=== PATIENT | female | born 1975 | race African-American/Black ===

== ENCOUNTER 2016-07-24 12:51 | Inpatient (IN) | payer OTHER ==
[~2016-07-24] VITALS: Ht 180.3 cm; Wt 137.0 kg
--- NOTE | ~2016-07-24 | 2DMMODE ---
[facility] [place] [address] 2 D/M-MODE ECHOCARDIOGRAM Name: DEWITTSHAYAN Room #: 209-P ADM IN M.R.#: [id number] Admission: 07/24/16 Attend Phys: Elias Morrow Discharge: Date of : 77 Date of Service: 07/26/16 1002 Report #: [id number] THIS REPORT FOR: //name// APPROVED REPORT Study performed: 07/26/2016 06:40:55 EXAM: Comprehensive 2D, Doppler, and color-flow Echocardiogram Patient Location: Bedside Room #: 209 Blood Pressure: 123/67 mmHg HR: 60 bpm Rhythm: NSR Other Information Study Quality: Adequate Indications Elevated Troponin S/P heart cath 07/25/16, CAD. Hx: Tobacco abuse, morbid obesity 2D Dimensions RVDd: 36.20 mm LVEF(%): 64.84 (>50%) IVSd: 11.47 (7-11mm) LVOT Diam: 21.75 (18-24mm) LVDd: 50.40 mm PWd: 10.76 (7-11mm) Ascending Ao: 31.79 (22-36mm) LVDs: 32.44 (25-40mm) Aortic Root: 30.58 mm Ch's LVEF: 64.84 % Volumes Left Atrial Volume (Systole) Single Plane 4CH: 63.02 mL Single Plane 2CH: 69.47 mL LA ESV Index: 29.00 mL/m2 Aortic Valve AoV Peak Wander.: 1.67 m/s AO Peak Gr.: 11.14 mmHg LVOT Max P.79 mmHg LVOT Max V: 0.97 m/s Mitral Valve E/A Ratio: 1.9 [facility] [address] [address] 2 D/M-MODE ECHOCARDIOGRAM Name: SHAYAN DEWITT Room #: 209-P [facility] IN ..#: [id number] Admission: 07/24/16 Attend Phys: Elias Morrow Discharge: Date of : 77 Date of Service: 07/26/16 1002 Report #: [id number] MV Decel. Time: 252.67 ms MV E Max Wander.: 0.96 m/s MV A Wander.: 0.51 m/s MV PHT: 73.27 ms Pulmonary Valve PV Peak Wander.: 0.94 m/s PV Peak Gr.: 3.55 mmHg Pulmonary Vein P Vein S: 73.0 m/s P Vein D: 66.9 m/s P Vein A Dur.: 23.8 m/s Tricuspid Valve TR Peak Wander.: 2.45 m/s RAP Estimate: 5.00 mmHg TR Peak Gr.: 23.93 mmHg RVSP: 29.00 mmHg Left Ventricle The left ventricle is normal size. There is normal LV segmental wall motion. There is normal left ventricular wall thickness. The left ventricular systolic function is normal. LVEF is 55-60%. The left ventricular diastolic function is normal. Right Ventricle The right ventricle is normal size. The right ventricular systolic function is normal. Atria The left atrium size is normal. The right atrium size is normal. Aortic Valve The aortic valve is normal in structure. No aortic regurgitation is present. There is no aortic valvular stenosis. Mitral Valve The mitral valve is normal in structure. Trace mitral regurgitation. Tricuspid Valve The tricuspid valve is normal in structure. There is mild tricuspid regurgitation. The right atrial pressure is estimated at 5 mmHg. Estimated PAP is 29mmHg. Pulmonic Valve The pulmonary valve is normal in structure. Trace pulmonic regurgitation. [address] [address] 2 D/M-MODE ECHOCARDIOGRAM Name: RENATESHAYAN Room #: 209-P [facility] IN [facility]#: [id number] Admission: 07/24/16 Attend Phys: Elias Morrow Discharge: Date of : 77 Date of Service: 07/26/16 1002 Report #: [id number] Great Vessels The aortic root is normal in size. The ascending aorta is normal in size. IVC is normal in size and collapses with >50% inspiration Pericardium There is no pericardial effusion. <Conclusion> The left ventricle is normal size. LVEF is 55-60%. The aortic valve is normal in structure. The mitral valve is normal in structure. Trace mitral regurgitation. The tricuspid valve is normal in structure. There is mild tricuspid regurgitation. The right atrial pressure is estimated at 5 mmHg. Estimated PAP is 29mmHg. Trace pulmonic regurgitation. <ELECTRONICALLY SIGNED> By: Suresh Aguillon MD 07/26/16 1002 1002 1002 Suresh Aguillon MD /INF
--- NOTE | ~2016-07-24 | CATHLAB ---
[facility] [address] [place] [address] INVASIVE PROCEDURE REPORT Name: SHAYAN DEWITT Room #: 209-P [facility] IN .R.#: [id number] Admission: 07/24/16 Attend Phys: Elias Morrow Discharge: Date of : 77 Date of Service: 07/25/16 1146 Report #: [id number] THIS REPORT FOR: //name// CC: Divine Castillo DATE OF SERVICE: 07/25/2016 INDICATIONS: Unstable angina, positive troponins. Full risks, benefits and alternatives of cardiac catheterization were explained to the patient. All questions were answered. Informed consent was obtained. The right groin area was prepped and draped in a sterile manner. Lidocaine was given subcutaneously. A 4-Prydeinig sheath was inserted into the right femoral artery via modified Seldinger technique. CORONARY ANATOMY: 1. The left main artery is a moderate to large sized caliber vessel, with no flow-limiting lesions. 2. The LAD is a moderate sized caliber vessel, traveling down the anterior wall and wrapping around the apex. Within the proximal segment of the LAD, there is a discrete, mild to moderate disease, approximately 40%. Medical therapy is recommended. 3. The left circumflex artery supplies 3 small obtuse marginal arteries. There were no flow-limiting lesions in the left circumflex artery. 4. The RCA is a dominant vessel with mild disease proximally, less than 20%. There were no limiting lesions within the remaining segments of the RCA or its branches. A left ventriculogram was performed revealing LV systolic function at the lower limits of normal, ejection fraction of 50-55%. There may be subtle hypokinesis of the apical region. The LVEDP is approximately 22 mmHg. There is no gradient across the outflow tract. IMPRESSION: 1. Mild to moderate disease in the proximal left anterior descending. Medical therapy is recommended. 2. Right dominant system. 3. Left ventricular systolic function at the lower limits of normal, possible subtle hypokinesis of the apical segment. 4. Medical therapy is recommended. <ELECTRONICALLY SIGNED> By: Shaheen Nicholas MD 07/26/16 0901 1146 0554 Shaheen Nicholas MD /nt
--- NOTE | ~2016-07-24 | H ---
[facility] [place] [address] HISTORY AND PHYSICAL Name: SHAYAN DEWITT Room #: 170-11 ADM IN M.R.#: [id number] Admission: 07/24/16 Attend Phys: Lenny Castillo MD Discharge: Date of : 77 Report #: [id number] THIS REPORT FOR: //name// CC: Divine Castillo DATE OF SERVICE: 07/24/2016 CHIEF COMPLAINT: Epigastric and lower chest pain. HISTORY OF PRESENT ILLNESS: The patient is a 40-year-old female with history of gastroesophageal reflux disease who presented to the Emergency Room complaining of epigastric and lower sternal pain. Symptoms started yesterday at around 10:00 p.m. It has been associated with nausea and vomiting. She had occasional dizziness, but no shortness of breath. The patient was initially worked up for possible gallbladder disease. Her AST was slightly elevated at 65. Her troponin is elevated at 1.27. EKG did show normal sinus rhythm without any significant ST segment or T-wave changes. The patient has no history of hypertension, diabetes or coronary artery disease. No history of any fever or chills. PAST MEDICAL HISTORY: Significant for hysterectomy. No history of any peptic ulcer disease, bleeding disorder. She has history of gastroesophageal reflux disease. No history of coronary artery disease. FAMILY HISTORY: Significant for hypertension. No history of diabetes. Father had coronary artery disease in his 60s. ALLERGIES: The patient is allergic to DEMEROL, please look at the nursing documentation for the reaction. HOME MEDICATION: Includes ranitidine. SOCIAL HISTORY: Smokes half a pack a day for the last 18 years. No history of alcohol abuse or illicit drug abuse. REVIEW OF SYSTEMS: CONSTITUTIONAL: No recent weight loss or weight gain. No fever or chills. EYES: No change in vision. THROAT: Denies any sore throat. CARDIOVASCULAR: As above. RESPIRATORY: No cough, expectoration. GASTROINTESTINAL: As above. GENITOURINARY: No dysuria, hematuria. NEUROLOGIC: No focal numbness or weakness of the extremities. [facility] [address] [place] [address] HISTORY AND PHYSICAL Name: SHAYAN DEWITT TRUDY Room #: 170-11 [facility] IN [facility]#: [id number] Admission: 07/24/16 Attend Phys: Lenny Castillo MD Discharge: Date of : 77 Report #: [id number] PSYCHIATRIC: No anxiety or depression. The 12-point review of system is negative other than the positive and the negative dictated in the history of present illness and the review of system. PHYSICAL EXAMINATION: VITAL SIGNS: Reveal blood pressure 141/74, heart rate of 79 per minute, afebrile. GENERAL: The patient is awake and alert, not in acute respiratory distress. EYES: Pupils equal, reactive to light, nonicteric, conjunctivae. Throat appears normal. NECK: Supple, no JVD, no bruit, no lymphadenopathy. CARDIOVASCULAR SYSTEM: S1, S2, negative S3, no murmur. CHEST: Bilateral air entry present. Clear on auscultation. ABDOMEN: Soft, bowel sounds present, no mass organomegaly. There is very mild tenderness in the epigastric area. No rebound tenderness. PERIPHERY: No pedal edema. No calf tenderness. Dorsalis pedis 1+. NEUROLOGICAL: No gross motor or sensory deficit. LABORATORY DATA: Reviewed. Her troponin is elevated at 1.27. AST and ALT are 16 and 37 respectively. Bilirubin is 0.8. BUN and creatinine are within normal limit. White count is normal at 9.4, normal hemoglobin and hematocrit. UA is essentially negative. PT/INR within normal limit. ASSESSMENT AND PLAN: 1. Chest pain, possible non-ST segment elevation myocardial infarction. The patient does have elevated troponin at 1.27. EKG showed no significant changes. The patient will be treated with aspirin and Lovenox and low dose beta letitia. I will order the echocardiogram. Cardiology has been consulted. We will keep her n.p.o. after midnight. 2. Gastroesophageal reflux disease. The patient will be placed on PPI. Rule out gallbladder disease. With a slightly elevated AST, I will go ahead and order an ultrasound of the gallbladder. We will also check on a total CPK level and a chest x-ray. Treatment plan has been explained to the patient in detail. We will check her lipids in the morning. <ELECTRONICALLY SIGNED> By: Lenny Castillo MD 07/24/16 1607 1502 1529 Lenny Castillo MD /nt
--- NOTE | ~2016-07-24 | EKG ---
[address] [place] [address] ELECTROCARDIOGRAM REPORT Name: DEWITTSHAYAN Room #: 209- ADM IN M.R.#: [id number] Admission: 07/24/16 Attend Phys: Lenny Castillo MD Discharge: Date of : 77 Report #: [id number] THIS REPORT FOR: //name// [facility] Test Date: 2016-07-25 Test Time: 06:57:58 Pat Name: SHAYAN DEWITT Department: Room: 209 P Gender: F [employer] Supervisor: joon : 1975 Requested By: Grace Alegria Order Number: [id number] MD: Jesse Neal Measurements Intervals [place] Rate: 75 P: 43 NM: 188 QRS: 21 QRSD: 85 T: 35 QT: 399 QTc: 446 Interpretive Statements Sinus rhythm Anterior T-wave abnormality No previous ECG available for comparison Electronically Signed On 07-25-2016 9:05:48 CDT by Jesse Neal [email or web address] <ELECTRONICALLY SIGNED> By: Jesse Neal MD, [facility] 07/25/16 0905 0657 06 Jesse Neal MD, FACC /EPI
--- NOTE | ~2016-07-24 | EKG ---
[place] [address] [address] [place] [address] ELECTROCARDIOGRAM REPORT Name: RENATESHAYAN Room #: 209-P ADM IN M.R.#: [id number] Admission: 07/24/16 Attend Phys: Lenny Castillo MD Discharge: Date of : 77 Report #: [id number] THIS REPORT FOR: //name// [facility] ED Test Date: 2016-07-24 Test Time: 13:42:15 Pat Name: SHAYAN DEWITT Department: Room: 209 Gender: F [employer] Supervisor: MZOOLouise : 1975 Requested By: Regi Pate Order Number: [id number] MD: Jesse Neal Measurements Intervals [place] Rate: 78 P: 48 CT: 176 QRS: 24 QRSD: 89 T: 43 QT: 394 QTc: 449 Interpretive Statements Sinus rhythm No significant abnormality No previous ECG available for comparison Electronically Signed On 07-25-2016 8:57:56 CDT by Jesse Neal [email or web address] <ELECTRONICALLY SIGNED> By: Jesse Neal MD, [facility] 07/25/16 0857 1342 1342 Jesse Neal MD, FACC /EPI
[2016-07-24 12:51] VITALS: BP 149/82
[~2016-07-24 12:51] MED LIST: BACTRIM DS TAB1 EACH PO; KEFLEX500 MG PO; LEXAPRO 10 MG T10 M1; NORCO 5-325 TA1 EACH PO; XANAX 0.5 MG0.5 MG
[2016-07-24 13:45] LABS: ABSOLUTE NEUTROPHILS 6.2 thou/uL (1.4-8.2); BASOPHILS 0.5 % (0.0-2.0); EOSINOPHILS 0.9 % (0.0-3.0); HEMATOCRIT 40.3 % (37.0-47.0); HEMOGLOBIN 14.1 gm/dL (12.0-15.0); LYMPHOCYTES 25.7 % (24.0-44.0); MCH 34.5 pg (26.0-34.0); MCHC 34.9 g/dL (28.0-37.0); MCV 98.9 fL (80.0-100.0); MONOCYTES 6.7 % (1.0-8.0); PLATELET COUNT 306 thou/uL (150-400); POLYS 66.2 % (36.0-66.0); RBC 4.08 mil/uL (4.20-5.00); RDW 12.4 % (10.5-14.5); WBC 9.4 thou/uL (4.0-11.0)
[2016-07-24 13:46] LABS: MANUAL DIFF NO
[2016-07-24 13:57] LABS: CALCIUM 8.9 mg/dL (8.5-10.1); CREATININE 0.7 mg/dL (0.6-1.0); POTASSIUM 4.3 mmol/L (3.5-5.1)
[2016-07-24 14:04] LABS: ALBUMIN 3.6 g/dL (3.4-5.0); TOTAL BILIRUBIN 0.8 mg/dL (<0.1-1.0); TOTAL PROTEIN 8.4 g/dL (6.4-8.2)
[2016-07-24 14:07] LABS: TROPONIN-I 1.27 ng/mL (<0.04-0.07)
[2016-07-24 14:46] LABS: URINE BILIRUBIN NEGATIVE (Negative); URINE BLOOD NEGATIVE (Negative); URINE COLOR YELLOW; URINE GLUCOSE-RANDOM* NEGATIVE (Negative); URINE KETONES NEGATIVE (Negative); URINE NITRITE NEGATIVE (Negative); URINE PROTEIN (DIPSTICK) NEGATIVE (Negative); URINE SPECIFIC GRAVITY 1.015 (1.003-1.035); URINE UROBILINOGEN 0.2 E.U./dl (0.2-1.0)
[2016-07-24 14:50] LABS: INR 1.1; PROTIME 11.1 Seconds (9.3-11.4)
[2016-07-24 17:15] VITALS: BP 139/79
[2016-07-24 20:06] VITALS: BP 135/81
[2016-07-25] VITALS (11 sets, daily range): BP systolic 114–141; BP diastolic 70–83
[2016-07-25 07:31] LABS: ABSOLUTE NEUTROPHILS 4.5 thou/uL (1.4-8.2); BASOPHILS 0.2 % (0.0-2.0); EOSINOPHILS 1.5 % (0.0-3.0); HEMATOCRIT 37.9 % (37.0-47.0); HEMOGLOBIN 13.2 gm/dL (12.0-15.0); LYMPHOCYTES 35.6 % (24.0-44.0); MCH 34.2 pg (26.0-34.0); MCHC 34.8 g/dL (28.0-37.0); MCV 98.3 fL (80.0-100.0); MONOCYTES 7.5 % (1.0-8.0); PLATELET COUNT 280 thou/uL (150-400); POLYS 55.2 % (36.0-66.0); RBC 3.85 mil/uL (4.20-5.00); RDW 12.5 % (10.5-14.5); WBC 8.2 thou/uL (4.0-11.0)
[2016-07-25 07:34] LABS: MANUAL DIFF NO
[2016-07-25 07:57] LABS: ALBUMIN 3.2 g/dL (3.4-5.0); ALKALINE PHOSPHATASE 56 U/L (46-116); ANION GAP 10 mmol/L (7-16); BUN 6 mg/dL (7-18); CALCIUM 8.5 mg/dL (8.5-10.1); CHLORIDE 104 mmol/L (98-107); CHOLESTEROL 191 mg/dL (<200); CO2 22 mmol/L (21-32); CREATININE 0.6 mg/dL (0.6-1.0); GLUCOSE 112 mg/dL (74-106); HDL CHOLESTEROL 34 mg/dL (>40); LDL CHOLESTEROL 135 mg/dL (<100); MAGNESIUM 1.9 mg/dL (1.8-2.4); POTASSIUM 4.2 mmol/L (3.5-5.1); SGOT 55 U/L (15-37); SGPT 34 U/L (30-65); SODIUM 136 mmol/L (136-145); TC:HDL 5.6 Ratio (Not establshd); TOTAL BILIRUBIN 0.8 mg/dL (<0.1-1.0); TOTAL PROTEIN 7.5 g/dL (6.4-8.2); TRIGLYCERIDE 111 mg/dL (<150); VLDL 22 mg/dL (<40)
[2016-07-25 08:00] LABS: TROPONIN-I 2.55 ng/mL (<0.04-0.07)
[2016-07-26 00:23] VITALS: BP 109/62
[2016-07-26 03:15] LABS: HEMATOCRIT 37.4 % (37.0-47.0); HEMOGLOBIN 12.7 gm/dL (12.0-15.0); RBC 3.74 mil/uL (4.20-5.00); RDW 12.5 % (10.5-14.5); WBC 8.3 thou/uL (4.0-11.0)
[2016-07-26 03:24] LABS: CALCIUM 8.6 mg/dL (8.5-10.1); CREATININE 0.8 mg/dL (0.6-1.0); MAGNESIUM 1.8 mg/dL (1.8-2.4); POTASSIUM 4.1 mmol/L (3.5-5.1)
[2016-07-26 03:47] VITALS: BP 123/67
[2016-07-26 07:39] VITALS: BP 138/77
[2016-07-26] MEDS ORDERED: CARVEDILOL3.125 MG PO (08:36)
[2016-07-26] MEDS ORDERED: ASPIRIN EC325 M1 PO (08:36)
[2016-07-26] MEDS ORDERED: ATORVASTATIN CA40 MG PO (08:36)
[2016-07-26 10:41] VITALS: BP 143/75
[2016-07-26 11:28] VITALS: BP 143/75
[2016-07-26 11:59] VITALS: BP 143/75
== END 2016-07-26 12:31 | disposition home or self-care (01) | DRG 282 ==
LOC: ER 12:51 → 2N 14:34 → EROBS 14:34 → 2N 16:47
PROVIDERS: Internal Medicine; Internal Medicine Cardiovascular Disease; Nurse Practitioner Family
PROC: 4A023N7 Measurement of Cardiac Sampling and Pressure, Left Heart, Percutaneous Approach (ICD-10-PCS; principal; 2016-07-25)
PROC: B2111ZZ Fluoroscopy of Multiple Coronary Arteries using Low Osmolar Contrast (ICD-10-PCS; principal; 2016-07-25)
PROC: B2151ZZ Fluoroscopy of Left Heart using Low Osmolar Contrast (ICD-10-PCS; principal; 2016-07-25)
DX: I21.4 Non-ST elevation (NSTEMI) myocardial infarction (principal); F17.210 Nicotine dependence, cigarettes, uncomplicated; K21.9 Gastro-esophageal reflux disease without esophagitis; E78.5 Hyperlipidemia, unspecified; J45.909 Unspecified asthma, uncomplicated; R79.89 Other specified abnormal findings of blood chemistry; R10.13 Epigastric pain; Z88.6 Allergy status to analgesic agent; Z82.49 Family history of ischemic heart disease and other diseases of the circulatory system; Z90.710 Acquired absence of both cervix and uterus; Z79.899 Other long term (current) drug therapy; Z71.6 Tobacco abuse counseling
CPT/HCPCS: 10081; 10194

== ENCOUNTER 2016-08-16 18:08 | Emergency (ER) | payer OTHER ==
[~2016-08-16] VITALS: Ht 180.3 cm; Wt 139.7 kg
--- NOTE | ~2016-08-16 | EKG ---
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
[~2016-08-16 18:08] MED LIST changes: +ASPIRIN EC325 M1 PO; +ATORVASTATIN CA40 MG PO; +CARVEDILOL3.125 MG PO
[2016-08-16 18:31] LABS: ABSOLUTE NEUTROPHILS 4.2 thou/uL (1.4-8.2); BASOPHILS 0.3 % (0.0-2.0); EOSINOPHILS 1.6 % (0.0-3.0); HEMATOCRIT 38.5 % (37.0-47.0); HEMOGLOBIN 13.3 gm/dL (12.0-15.0); LYMPHOCYTES 36.8 % (24.0-44.0); MANUAL DIFF NO; MCH 34.2 pg (26.0-34.0); MCHC 34.5 g/dL (28.0-37.0); MCV 99.2 fL (80.0-100.0); MONOCYTES 8.6 % (1.0-8.0); PLATELET COUNT 316 thou/uL (150-400); POLYS 52.7 % (36.0-66.0); RBC 3.89 mil/uL (4.20-5.00); RDW 12.6 % (10.5-14.5)
[2016-08-16 18:39] LABS: ANION GAP 9 mmol/L (7-16); BUN 10 mg/dL (7-18); CALCIUM 9.2 mg/dL (8.5-10.1); CHLORIDE 103 mmol/L (98-107); CO2 23 mmol/L (21-32); CREATININE 0.8 mg/dL (0.6-1.0); GLUCOSE 101 mg/dL (74-106); POTASSIUM 4.7 mmol/L (3.5-5.1); SODIUM 135 mmol/L (136-145)
[2016-08-16 18:49] LABS: NT-PRO BRAIN NAT PEPTIDE 27 pg/mL (<300); TROPONIN-I < 0.04 ng/mL (<0.04-0.07)
== END 2016-08-16 21:25 | disposition home or self-care (01) ==
LOC: ER 18:08
PROVIDERS: Physician Assistant
DX: R07.89 Other chest pain (principal); J45.909 Unspecified asthma, uncomplicated; K21.9 Gastro-esophageal reflux disease without esophagitis; Z90.710 Acquired absence of both cervix and uterus; I25.2 Old myocardial infarction; Z98.890 Other specified postprocedural states; Z88.8 Allergy status to other drugs, medicaments and biological substances; F17.210 Nicotine dependence, cigarettes, uncomplicated; F10.99 Alcohol use, unspecified with unspecified alcohol-induced disorder

== ENCOUNTER → 2017-01-05 | Outpatient (CLI) | payer OTHER ==
--- NOTE | ~2017-01-05 | EKG ---
[address] [address] ELECTROCARDIOGRAM REPORT Name: SHAYAN DEWITT [id number] Admission: 01/05/17 Attend Phys: Malcolm Mays MD, F Discharge: Date of : 77 Report #: [id number] THIS REPORT FOR: //name// [facility] Test Date: 2017-01-05 Test Time: 11:33:56 Pat Name: SHAYAN DEWITT Department: Room: Gender: F Front End Technician: Dipti HUMPHREY : 1975 Requested By: Malcolm Mays Order Number: [id number] MD: Moreno Ray Measurements Intervals [place] Rate: 85 P: 42 MT: 176 QRS: 31 QRSD: 79 T: 15 QT: 370 QTc: 440 Interpretive Statements Sinus rhythm Compared to ECG 08/16/2016 18:15:22 No significant changes Electronically Signed On 01-05-2017 21:03:34 CDT by Moreno Ray [email or web address] <ELECTRONICALLY SIGNED> By: Moreno Ray MD 01/05/17 2103 D: [id number] 32 Moreno Ray MD /NEYDA
[2017-01-05 10:45] LABS: ABSOLUTE NEUTROPHILS 5.2 thou/uL (1.4-8.2); BASOPHILS 0.2 % (0.0-2.0); EOSINOPHILS 1.6 % (0.0-3.0); HEMATOCRIT 39.2 % (37.0-47.0); HEMOGLOBIN 13.7 gm/dL (12.0-15.0); LYMPHOCYTES 27.1 % (24.0-44.0); MCH 34.1 pg (26.0-34.0); MCHC 34.8 g/dL (28.0-37.0); MCV 97.9 fL (80.0-100.0); MONOCYTES 6.7 % (1.0-8.0); PLATELET COUNT 298 thou/uL (150-400); POLYS 64.4 % (36.0-66.0); RBC 4.01 mil/uL (4.20-5.00); RDW 12.4 % (10.5-14.5); WBC 8.1 thou/uL (4.0-11.0)
[2017-01-05 10:47] LABS: MANUAL DIFF NO
[2017-01-05 11:03] LABS: ALBUMIN 3.5 g/dL (3.4-5.0); CALCIUM 9.3 mg/dL (8.5-10.1); CREATININE 0.8 mg/dL (0.6-1.0); POTASSIUM 4.5 mmol/L (3.5-5.1); TOTAL BILIRUBIN 0.7 mg/dL (<0.1-1.0); TOTAL PROTEIN 7.7 g/dL (6.4-8.2)
[2017-01-05 11:41] LABS: FOLIC ACID 11.5 ng/mL (8.6-58.9)
== END ==
LOC: RAD 10:03
PROVIDERS: Surgery
DX: K21.9 Gastro-esophageal reflux disease without esophagitis (principal); I10 Essential (primary) hypertension; E66.01 Morbid (severe) obesity due to excess calories; R73.03 Prediabetes; Z68.41 Body mass index [BMI] 40.0-44.9, adult

== ENCOUNTER 2017-07-01 02:28 | Inpatient (IN) | payer OTHER ==
[2017-07-01] VITALS (7 sets, daily range): BP systolic 97–139; BP diastolic 59–88
[~2017-07-01] VITALS: Ht 180.3 cm; Wt 142.2 kg
--- NOTE | ~2017-07-01 | HC ---
[facility] [place] [address] CONSULTATION Name: SHAYAN DEWITT Room #: 206-P [facility] M.R.#: [id number] Admission: 07/01/17 Attend Phys: Sal Paulson DO Discharge: Date of : 77 Report #: [id number] THIS REPORT FOR: //name// CC: Sal Martin DATE OF SERVICE: 07/01/2017 CARDIOLOGY CONSULTATION INDICATION: Chest pain. HISTORY OF PRESENT ILLNESS: This is a 41-year-old female with a history of CAD, diabetes mellitus, hypertension, hypercholesterolemia and obesity, presenting with chest pains. She had been cleaning her house last evening, developed substernal chest discomfort. It was nonradiating and she felt nauseous. The whole episode lasted approximately 1 hour in duration. She denies any history of lightheadedness, shortness of breath or diaphoresis. There is no recent history of fever, chills or diarrhea. PAST MEDICAL HISTORY: CAD, presented with minimally elevated troponin levels in 2017. Cardiac catheterization revealed nonobstructive CAD. History of obesity, hypertension, diabetes mellitus, GERD. ALLERGIES: DEMEROL. MEDICATIONS: At home include metformin, aspirin, Coreg 3.125 b.i.d., Lipitor 80 mg daily and omeprazole. SOCIAL HISTORY: Tobacco use, quit about a week ago. FAMILY HISTORY: Negative for premature CAD. REVIEW OF SYSTEMS: A full 10-point review of systems performed. Only the pertinent positives and negatives are described in the HPI. PHYSICAL EXAMINATION: VITAL SIGNS: Blood pressure is 110/60, heart rate is 67 beats per minute. GENERAL APPEARANCE: This is an overweight female, in no acute respiratory distress. HEAD AND EYES: Normocephalic. Sclerae are anicteric. ENT: Oral mucosa moist. NECK: Supple. LUNGS: Clear to auscultation. CARDIAC: Regular rate and rhythm, S1, S2 positive. ABDOMEN: Soft. [facility] [address] [place] [address] CONSULTATION Name: SHAYAN DEWITT Room #: [address] [place] [address] M.R.#: [id number] Admission: 07/01/17 Attend Phys: Sal Paulson DO Discharge: Date of : 77 Report #: [id number] EXTREMITIES: No major joint deformities. No edema, no cyanosis. ECG reveals sinus rhythm, nonspecific ST-segment changes. LABORATORY VALUES: Serial troponins are negative. Hemoglobin 13.4, sodium is 134, creatinine is 0.9. IMPRESSION AND PLAN: 1. Chest pain syndrome, the troponin is negative and the ECG does not show any acute ST segment changes. However, she does have a history of CAD with risk factors. We will proceed with stress testing. 2. Diabetes mellitus, continue with medications and check fingersticks. 3. Hypertension, we will hold Coreg for the stress test. 4. Hypercholesterolemia, continue with Lipitor. 5. Obesity, scheduled to undergo a gastric sleeve procedure. <ELECTRONICALLY SIGNED> By: Shaheen Nicholas MD 07/02/17 0909 1108 1806 Shaheen Nicholas MD /nt
--- NOTE | ~2017-07-01 | EKG ---
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: MORAIMA : 1975 Requested By: Samson Slater Order Number: [id number] MD: Moreno Ray Measurements Intervals [place] Rate: 63 P: 24 SD: 199 QRS: 35 QRSD: 88 T: 13 QT: 414 QTc: 424 Interpretive Statements Sinus rhythm ST elev, probable normal early repol pattern Compared to ECG 01/05/2017 11:33:56 ST (T wave) deviation now present Electronically Signed On 07-01-2017 11:00:00 CDT by Moreno Ray [email or web address] <ELECTRONICALLY SIGNED> By: Moreno Ray MD 07/01/17 1100 0248 0248 Moreno Ray MD /[facility]
[~2017-07-01 02:28] MED LIST changes: +ASPIRIN325 PO; +LIPITOR80 MG PO; +METFORMIN HCL500 MG PO; +OMEPRAZOLE40 MG PO; +PROAIR HFA8.5 GM INH
[2017-07-01 03:24] LABS: ABSOLUTE NEUTROPHILS 4.3 thou/uL (1.4-8.2); BASOPHILS 0.3 % (0.0-2.0); EOSINOPHILS 1.4 % (0.0-3.0); HEMATOCRIT 38.6 % (37.0-47.0); HEMOGLOBIN 13.4 gm/dL (12.0-15.0); LYMPHOCYTES 39.2 % (24.0-44.0); MCH 33.9 pg (26.0-34.0); MCHC 34.8 g/dL (28.0-37.0); MCV 97.6 fL (80.0-100.0); MONOCYTES 9.7 % (1.0-8.0); PLATELET COUNT 340 thou/uL (150-400); POLYS 49.4 % (36.0-66.0); RBC 3.95 mil/uL (4.20-5.00); RDW 12.4 % (10.5-14.5); WBC 8.7 thou/uL (4.0-11.0)
[2017-07-01 03:27] LABS: ANION GAP 10 mmol/L (7-16); BUN 17 mg/dL (7-18); CALCIUM 9.7 mg/dL (8.5-10.1); CHLORIDE 100 mmol/L (98-107); CO2 24 mmol/L (21-32); CREATININE 0.9 mg/dL (0.6-1.0); GLUCOSE 103 mg/dL (74-106); POTASSIUM 3.7 mmol/L (3.5-5.1); SODIUM 134 mmol/L (136-145)
[2017-07-01 03:34] LABS: APTT 27.4 Seconds (24.5-32.8); PROTIME 10.7 Seconds (9.3-11.4); SGOT 37 U/L (15-37); SGPT 47 U/L (30-65); TOTAL BILIRUBIN 0.8 mg/dL (<0.1-1.0); TOTAL PROTEIN 8.4 g/dL (6.4-8.2); TROPONIN-I < 0.04 ng/mL (<0.06)
[2017-07-02 03:53] VITALS: BP 130/70
[2017-07-02 03:55] LABS: CALCIUM 9.1 mg/dL (8.5-10.1); CREATININE 0.7 mg/dL (0.6-1.0)
[2017-07-02 08:00] VITALS: BP 106/60
[2017-07-02 12:00] VITALS: BP 107/67
[2017-07-02 16:00] VITALS: BP 99/61
[2017-07-02 19:46] VITALS: BP 101/42
[2017-07-03 04:32] VITALS: BP 112/74
[2017-07-03 08:02] VITALS: BP 121/67
[2017-07-03] MEDS ORDERED: COREG6.25 MG PO (08:47)
[2017-07-03 11:18] VITALS: BP 126/67
[2017-07-03 13:48] VITALS: BP 126/67
== END 2017-07-03 14:16 | disposition home or self-care (01) | DRG 313 ==
LOC: ER 02:28 → 2N 03:49 → EROBS 03:49 → 2N 04:49
PROVIDERS: Emergency Medicine; Nurse Practitioner Family
DX: R07.9 Chest pain, unspecified (principal); Z68.41 Body mass index [BMI] 40.0-44.9, adult; J45.909 Unspecified asthma, uncomplicated; K21.9 Gastro-esophageal reflux disease without esophagitis; I10 Essential (primary) hypertension; G47.33 Obstructive sleep apnea (adult) (pediatric); I25.10 Atherosclerotic heart disease of native coronary artery without angina pectoris; E78.00 Pure hypercholesterolemia, unspecified; E66.9 Obesity, unspecified; E11.9 Type 2 diabetes mellitus without complications; F17.210 Nicotine dependence, cigarettes, uncomplicated; Z90.710 Acquired absence of both cervix and uterus; I25.2 Old myocardial infarction; Z86.14 Personal history of Methicillin resistant Staphylococcus aureus infection; Z79.82 Long term (current) use of aspirin; Z79.84 Long term (current) use of oral hypoglycemic drugs; Z79.899 Other long term (current) drug therapy; Z88.8 Allergy status to other drugs, medicaments and biological substances; Z82.49 Family history of ischemic heart disease and other diseases of the circulatory system
CPT/HCPCS: 10081

== ENCOUNTER 2017-07-12 05:32 | Day surgery (SDC) | payer OTHER ==
[~2017-07-12] VITALS: Ht 154.9 cm; Wt 142.4 kg
--- NOTE | ~2017-07-12 | O ---
[facility] [place] [address] OPERATIVE REPORT Name: SHAYAN DEWITT Room #: 431-P [facility] M.R.#: [id number] Admission: 07/12/17 Attend Phys: Malcolm Mays MD, F Discharge: Date of : 77 Report #: [id number] THIS REPORT FOR: //name// CC: Divine Mays DATE OF SERVICE: 07/12/2017 SURGEON: Malcolm Mays MD ROSE GRADER: Kg Sykes MD PREOPERATIVE DIAGNOSES: 1. Morbid obesity (body mass index 43.8). 2. Coronary artery disease. 3. Type 2 diabetes mellitus. 4. Gastroesophageal reflux disease. 5. Hypertension. 6. Obstructive sleep apnea. 7. Hyperlipidemia. POSTOPERATIVE DIAGNOSES: 1. Morbid obesity (body mass index 43.8). 2. Coronary artery disease. 3. Type 2 diabetes mellitus. 4. Gastroesophageal reflux disease. 5. Hypertension. 6. Obstructive sleep apnea. 7. Hyperlipidemia. PROCEDURE: Laparoscopic sleeve gastrectomy with EGD. ANESTHESIA: General endotracheal anesthesia and local anesthetic. ESTIMATED BLOOD LOSS: 5 mL. SPECIMEN: Lateral stomach. COMPLICATIONS: None appreciated. INDICATION FOR PROCEDURE: This is a 41-year-old female patient of Dr. Divine Martin who stands 5 feet 10 inches, weighing 314 pounds at her most recent office visit with a BMI of 43.8. She has had difficulty with her weight for most of her adult life and has tried numerous weight loss programs and plans with limited weight loss success. Any amount of weight she has lost, she has quickly regained plus additional weight after stopping the modality. She has [facility] [address] [place] [address] OPERATIVE REPORT Name: SHAYAN DEWITT Room #: 431-P [facility] M.R.#: [id number] Admission: 07/12/17 Attend Phys: Malcolm Mays MD, F Discharge: Date of : 77 Report #: [id number] tried diet and exercise as well as counseling at an outside center. She has been cleared from a multidisciplinary standpoint and bariatric surgery is indicated. She presents today for laparoscopic sleeve gastrectomy with EGD. OPERATIVE FINDINGS: On EGD, the patient's esophagus was normal down to the GE junction and Z-line measured at 38 cm from the teeth. There was no evidence for hiatal hernia. The stomach and duodenum to the third portion were normal without polyps, masses, diverticula, or ulcers. On retroflexion of the scope within the antrum of the stomach, there was no evidence for hiatal hernia. Laparoscopically, the patient had steatosis without alvaro steatohepatitis. Her liver was enlarged and floppy. Her stomach was also enlarged. The small bowel and colon in the surrounding area appeared otherwise normal. The gastric sleeve staple line was located 4 cm lateral to the pylorus, 3 cm lateral to the incisura of the stomach, and 1 cm lateral to the GE junction. There was no evidence for staple line leak. Immediately after applying Tisseel to the gastric sleeve staple line, the gastroscope was used to insufflate carbon dioxide into the stomach. No air bubbles were seen forming within the Tisseel indicative a negative leak test. Endoscopically, the lumen of her gastric sleeve was smoothed and contoured without hemorrhage. No other significant intraabdominal pathology was seen. There was no evidence for iatrogenic injury. At the conclusion of the operation, sponge, needle, and instrument counts were correct. The excised stomach held 1000 mL of fluid on the backtable. DESCRIPTION OF PROCEDURE IN DETAIL: After the benefits and risks of the procedure were explained to the patient which include but are not limited to risks of bleeding, infection, postoperative pain, postoperative expectations and risks of DVT and pulmonary embolus, informed consent was obtained. The patient was identified in the preoperative holding area. The patient was given IV antibiotics as documented in the chart in line with SCIP protocol. The patient was then taken to the operating room and was placed in the supine position. The patient was given IV sedation and was intubated without incident. SCDs were placed on the patient's bilateral lower extremities prior to induction of anesthesia. The patient had been placed in the modified low lying dorsal lithotomy position in stirrups on the beanbag. The beanbag and the patient were taped to the bed to secure the patient. A time-out was then performed to correctly identify the patient and procedure. An orogastric tube was placed by anesthesia. A bite block was placed and the fiberoptic EGD scope was passed into the patient's oropharynx, down the esophagus, into the stomach, and into the third portion of the duodenum. Findings are as noted above. The scope was slowly withdrawn into the antrum and the scope was retroflexed. The hiatus was visualized. The scope was then straightened and the end of the gastroscope was placed at the pylorus. The stomach was decompressed with the scope. [facility] [address] [place] [address] OPERATIVE REPORT Name: SHAYAN DEWITT Room #: 431-P REG [facility]#: [id number] Admission: 07/12/17 Attend Phys: Malcolm Mays MD, F Discharge: Date of : 77 Report #: [id number] The patient's abdomen was then prepped and draped in the standard sterile fashion with surgical prep. Local anesthetic was infiltrated into the skin and subcutaneous tissue in the left supraumbilical area where a sharp #15-blade scalpel was used to make a 5-mm incision. The 5-mm Visiport was placed intraperitoneally with the 5-mm 0-degree angled laparoscope. Pneumoperitoneum was then achieved with insufflation of carbon dioxide to 15 mmHg. A 5-mm 30-degree angled laparoscope was then inserted. The 15-mm port was placed in the right supraumbilical area after local anesthetic was infiltrated into the skin and subcutaneous tissue and an appropriately sized incision was made. Two additional 5 mm ports were placed in the left abdomen after local anesthetic was infiltrated and incisions were made. All ports were placed under direct visualization. The patient was then placed in reverse Trendelenburg position. Local anesthetic was infiltrated into the skin and subcutaneous tissue in the subxiphoid area and a 5-mm incision was made through which a 5-mm obturator was passed into the abdominal cavity through the fascia to create a passageway for the Danny liver retractor. The retractor was placed to retract the liver anteriorly. The retractor was held in place with the Iron Expense Clerk apparatus. All abdominal adhesions were then taken down with blunt dissection, sharp dissection and judicious use of the ultrasonic dissector. The gastrosplenic ligament and short gastric vessels were then divided using the ultrasonic dissector with appropriate traction. Bleeding points were made hemostatic with the ultrasonic dissector. Dissection was carried proximally up to the left osiel of the diaphragm. The distal end point of dissection was then measured at 4 cm proximal to the pylorus. The short gastric vessels and gastrocolic ligaments were dissected to that level. The stomach was then rotated medially to visualize any posterior attachments/adhesions to the stomach. The adhesions were dissected with a combination of sharp dissection and use of the ultrasonic dissector. The endoscope was then slightly withdrawn to place it along the lesser curvature of the stomach. Suction was applied to the orogastric tube which was then removed, leaving the endoscope in place as a 34-Turkish bougie. The gastric sleeve was then created. Two black loads of the powered endoscopic 60mm MARYLIN stapler buttressed with Maren-Strips were used to staple and divide the stomach 4 cm proximal to the pylorus. Additional green loads buttressed with Maren-strips were used to staple off the remainder of the stomach using the endoscope as the bougie. Care was taken to ensure that greater than 3 cm of space was present between the incisura and the staple line. The stomach was fully transected and placed in the right upper quadrant of the abdomen for later removal. 14 mL of Tisseel was applied to the entire length of the staple line with the Duplospray aerosolizer to fully ensure hemostasis. The leak test was performed next. The sleeve was insufflated with the endoscope which was slowly withdrawn. No air bubbles were seen forming in the Tisseel laparoscopically. Endoluminally, no bleeding was seen. The stomach [address] [address] OPERATIVE REPORT Name: SHAYAN DEWITT Room #: 431-P [facility] M.R.#: [id number] Admission: 07/12/17 Attend Phys: Malcolm Mays MD, F Discharge: Date of : 77 Report #: [id number] was fully decompressed and the scope was slowly withdrawn. The Danny liver retractor was then loosened from the Iron Expense Clerk apparatus and it was removed without difficulty. The stomach was then removed from the patient's body through the 15-mm port under direct visualization. A small amount stretching of the fascia was required to create an opening large enough for removal of the stomach. After its removal, the 15-mm port site fascial opening was closed with an 0-PDS suture using the Ben-Calli laparoscopic fascial closure device. All ports were removed after the abdominal cavity was desufflated. The fascial suture was tied under direct visualization to ensure no incorporation of intra-abdominal content. Interrupted subcuticular 4-0 Monocryl sutures and Dermabond were used to close all skin incisions. The patient tolerated the procedure well. The patient was awakened, extubated and taken to the recovery room in stable condition with no apparent intraoperative complications. <ELECTRONICALLY SIGNED> By: Malcolm Mays MD, FACS 07/13/17 [id number] Malcolm Mays MD, FACS /nt
--- NOTE | ~2017-07-12 | S ---
[facility] [place] [address] SURGICAL PATH RPT PROCEDURE Name: SHAYAN SEYMOUR Room #: DEP [facility] M.R.#: [id number] Admission: 07/12/17 Date of : 77 Discharge: 07/13/17 Report #: [id number] Path Case #: [id number] PATHOLOGY REPORT COLLECTION DATE: 07/12/2017 RECEIVED DATE: 07/12/2017 SUBMITTING PHYS: Dr. Malcolm Mays OTHER PHYS: Dr. Divine Martin SPECIMEN(S) RECEIVED: A.Gastric sleeve * * * * * * * * * * * * FINAL DIAGNOSIS: Stomach, gastric sleeve, partial sleeve gastrectomy: - No significant diagnostic abnormalities present, history of morbid obesity. (IUV:pit; 07/13/2017) PATHOLOGIST: Ana Luisa Clark M.D. REPORT ELECTRONICALLY SIGNED BY: Ana Luisa Clark M.D. DATE/TIME: 07/13/2017 13:30 * * * * * * * * * * * * GROSS PATHOLOGY: The specimen is received in formalin, labeled "Shayan Seymour, gastric sleeve". Received is a partial gastrectomy specimen with a stapled margin of resection measuring 29.5 x 5.2 cm in greatest dimensions. The serosal surface is pink-escoto and smooth. Opening the specimen reveals a pink-escoto mucosa with a single polyp measuring 0.4 x 0.4 x 0.3 cm. No additional polyps or mass lesions identified. The specimen is submitted representatively as follows: A1: Polyp A2: Additional unremarkable mucosa (SDY; 07/12/2017) CLINICAL HISTORY: Morbid obesity INITIAL CPT CODE(S): A; 07772 Professional services performed by [facility] at [address] [place] [address] [facility] [address] [place] [address] SURGICAL PATH RPT PROCEDURE Name: SHAYAN SEYMOUR Room #: DEP [facility] M.R.#: [id number] Admission: 07/12/17 Date of : 77 Discharge: 07/13/17 Report #: [id number] Path Case #: [id number] Technical services performed by [facility] at [address] [place] [address], [facility] [address] [address]. [facility] [address] [place] [address] PHONE: [phone] DIRECTOR: Chavo Martinez M.D. * * * END OF REPORT * * *
[~2017-07-12 05:32] MED LIST changes: +CALCIUM 500 +1 EACH PO; +COREG6.25 MG PO; +MULTI VITAMIN1 EACH PO
[2017-07-12 10:44] VITALS: BP 120/83
[2017-07-12 20:00] VITALS: BP 154/95
[2017-07-13 04:18] VITALS: BP 135/81
[2017-07-13 05:06] LABS: ABSOLUTE NEUTROPHILS 10.4 thou/uL (1.4-8.2); BASOPHILS 0.6 % (0.0-2.0); HEMATOCRIT 38.5 % (37.0-47.0); HEMOGLOBIN 13.2 gm/dL (12.0-15.0); LYMPHOCYTES 11.7 % (24.0-44.0); MCH 33.5 pg (26.0-34.0); MCHC 34.2 g/dL (28.0-37.0); MONOCYTES 7.4 % (1.0-8.0); PLATELET COUNT 286 thou/uL (150-400); POLYS 80.3 % (36.0-66.0); RBC 3.93 mil/uL (4.20-5.00); RDW 12.6 % (10.5-14.5)
[2017-07-13 05:14] LABS: CREATININE 0.7 mg/dL (0.6-1.0); POTASSIUM 4.8 mmol/L (3.5-5.1)
[2017-07-13 07:39] VITALS: BP 128/76
[2017-07-13] MEDS ORDERED: HYDROCODONE-ACE15 ML PO (09:43)
[2017-07-13 11:39] VITALS: BP 128/76
== END 2017-07-13 12:28 | disposition home or self-care (01) ==
LOC: OR 05:32 → TBA 05:32 → OR 08:14 → 4N 14:35 → 4E 15:05 → OR 07-13 07:20 → ENTRNSPT 07-13 12:21 → EDTRNSPTSTS 07-13 12:23 → OR 07-13 12:28
PROVIDERS: Surgery
DX: E66.01 Morbid (severe) obesity due to excess calories (principal); I10 Essential (primary) hypertension; I25.2 Old myocardial infarction; I25.10 Atherosclerotic heart disease of native coronary artery without angina pectoris; E11.9 Type 2 diabetes mellitus without complications; K21.9 Gastro-esophageal reflux disease without esophagitis; G47.33 Obstructive sleep apnea (adult) (pediatric); E78.5 Hyperlipidemia, unspecified; J45.909 Unspecified asthma, uncomplicated; Z88.8 Allergy status to other drugs, medicaments and biological substances; Z68.41 Body mass index [BMI] 40.0-44.9, adult; Z95.5 Presence of coronary angioplasty implant and graft; Z98.890 Other specified postprocedural states; Z87.891 Personal history of nicotine dependence; Z90.710 Acquired absence of both cervix and uterus; Z79.891 Long term (current) use of opiate analgesic; Z79.899 Other long term (current) drug therapy
CPT/HCPCS: 10183; 50010; 50101; 50222; 50249; 50386; 50555; 50739; 50740; 50962; 51437; 52182; 52265; 53307; 53311; 54022; 54118; 56462; 56525; 56526; 57092; 64029